=== PATIENT | female | born 2005 | race Caucasian/White ===

== ENCOUNTER 2024-04-23 09:25 | Emergency (ER) | payer OTHER, SELFPAY ==
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
[2024-04-23 09:29] VITALS: BP 109/80; PULSE 89; RESP 19; TEMP 36.1; O2SAT 99; BMI 31.3
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
[2024-04-23 10:16] LABS: MANUAL DIFF FLAG NO
[2024-04-23 10:18] LABS: Basophils Percent Auto 0.2 % (0-2); Hematocrit 35.8 % (37.0-47.0); Hemoglobin 12.3 g/dl (12.0-16.0); Imm Gran Abs Auto 0.02 X10*3/uL (0.00-0.03); Imm Gran Pct Auto 0.5 % (0.0-0.4); Lymphocytes Absolute Auto 1.9 X10*3/uL (1.2-4.9); Lymphocytes Percent Auto 46.6 % (20-40); Mean Corpuscular HGB Conc 34.4 g/dl (31.0-35.0); Mean Corpuscular Hemoglobin 30.3 pg (27.0-33.0); Mean Corpuscular Volume 88.2 fL (80.0-98.0); Monocytes Absolute Auto 0.4 X10*3/uL (0.1-1.2); Monocytes Percent Auto 8.7 % (2-11); Neutrophils Absolute Auto 1.8 x10*3/uL (2.0-8.3); Platelet Count 337 X10*3/uL (160-400); Red Blood Count 4.06 X10*6/uL (4.20-5.50); Red Cell Distribution Width 12.3 % (11.0-16.0); White Blood Count 4.2 X10*3/uL (4.8-10.8)
[2024-04-23 10:41] LABS: Alanine Aminotransferase 15 U/L (0-31); Alkaline Phosphatase 56 U/L (39-117); Anion Gap 10 (12-20); Aspartate Amino Transferase 17 U/L (5-31); Bilirubin Total 0.4 mg/dL (0.0-1.0); Blood Urea Nitrogen 11 mg/dL (9-16); Calcium 9.2 mg/dL (8.4-10.2); Carbon Dioxide 26 mmol/L (22-29); Chloride 106 mmol/L (96-108); Creatinine Clr Calc Pharmacy 119.5; Estimated Glomerular Filt Rate > 60; Glucose Random 258 mg/dL (60-115); HCG Quantitative < 2 mIU/mL; Lipase 25 U/L (8-78); Potassium 4.1 mmol/L (3.3-5.1); Sodium 138 mmol/L (135-145); Total Protein 7.1 g/dL (6.5-8.0)
[2024-04-23] MEDS: iohexoL 350 MG/ML 100 ML INFUS..BTL IV (10:57)
[2024-04-23 11:03] LABS: Partial Thromboplastin Time 33.9 SEC (26.0-36.8)
[2024-04-23] MEDS: Ketorolac Tromethamine 15 MG/ML VIAL IVPUSH (12:03)
[2024-04-23] MEDS: ondansetron HCL 4 MG/2 ML VIAL IVPUSH (12:04)
[2024-04-23] MEDS: 0.9 % Sodium Chloride 1,000 ML 999 ML IV (12:04)
[2024-04-23 12:06] VITALS: BP 110/76; PULSE 79; RESP 18; O2SAT 98
[2024-04-23 12:25] LABS: Appearance Urine Clear; Color Urine Yellow; Glucose Urine UA 250 mg/dL (Negative); Leukocyte Esterase Urine Negative (Negative); Nitrite Urine Negative (Negative); Specific Gravity - Urine >= 1.030 (1.005-1.025); Urine Blood Negative (Negative); Urine Ketones Negative (Negative); Urine Protein Negative (Neg-Trace)
[2024-04-23 14:31] VITALS: BP 110/76; PULSE 79; RESP 18; TEMP 36.8; O2SAT 98
== END 2024-04-23 14:34 | disposition home or self-care (01) ==
PROVIDERS: Emergency Provider Emergency Medicine Emergency Medical Services
DX: S30.1XXA Contusion of abdominal wall, initial encounter (principal); N94.89 Other specified conditions associated with female genital organs and menstrual cycle; R10.2 Pelvic and perineal pain; V43.62XA Car passenger injured in collision with other type car in traffic accident, initial encounter; Y93.89 Activity, other specified; Y92.488 Other paved roadways as the place of occurrence of the external cause; Y99.8 Other external cause status
CPT/HCPCS: 36415; 74177; 80053; 81003; 82550; 83690; 84702; 85025; 85730; 96361; 96374; 96375; 99284; 99285; J1885; J2405; Q9967